=== PATIENT | male | born 1940 | race Caucasian/White ===

== ENCOUNTER 2018-01-12 05:52 | Inpatient (IN) | payer MEDICARE ==
[~2018-01-12 05:52] MED LIST: Buffered Lidocaine 0.9% SYRIN* 5 ML/SYR SYRINGE INTRADERM ONE
[2018-01-12] MEDS ORDERED: Sodium Citrate/Citric Acid* 15 ML UDC ONE (05:57)
[2018-01-12] MEDS ORDERED: ceFAZolin 2 GM PREMIX (*) 2 GM/50 ML BAG IVPB ONE (05:57)
[2018-01-12] MEDS ORDERED: Sodium Citrate/Citric Acid* 15 ML UDC PO ONE (06:00)
[2018-01-12] MEDS ORDERED: Thrombin 5,000 UNITS* 1 APPLIC KIT - topical use - TOPICAL ONE (07:01)
[2018-01-12] MEDS ORDERED: Lidocain 1% EPI 1:100,000 * 30 ML MDV ONE (07:01)
[2018-01-12] MEDS ORDERED: Bacitracin IV* 50,000 UNITS INJ ONE (07:01)
[2018-01-12] MEDS ORDERED: Lidocaine 2% PF * 5 ML VIAL ONE (07:12)
[2018-01-12] MEDS ORDERED: Propofol* 10 MG/ML 20 ML BTL IV PUSH ONE ×2 (07:12→09:04)
[2018-01-12] MEDS ORDERED: Rocuronium* 10 MG/ML VIAL ONE (07:13)
[2018-01-12 07:35] LABS: EGFR Non-African American 76.4 (>60)
[2018-01-12] MEDS ORDERED: fentaNYL* 50 MCG/ML 2 ML VIAL (100 MCG VIAL) ONE (07:38)
[2018-01-12] MEDS ORDERED: DiMENhydriNATE IV* 50 MG/ML VIAL IV PUSH PRN (08:35)
[2018-01-12] MEDS ORDERED: fentaNYL* 50 MCG/ML 2 ML VIAL (100 MCG VIAL) IV PRN (08:35)
[2018-01-12] MEDS ORDERED: Naloxone* 0.4 MG/ML 1 ML VIAL IV PRN (08:35)
[2018-01-12] MEDS ORDERED: HYDROcodone/ACETAMIN 5-325 MG* 1 TAB PO PRN (10:10)
[2018-01-12] MEDS ORDERED: Acetaminophen TAB* 325 MG PO PRN (10:10)
[2018-01-12] MEDS ORDERED: Magnesium Hydroxide LIQ* 30 ML UDC PO PRN (10:10)
--- NOTE | 2018-01-12 10:46 | RAD ---
HISTORY: LEFT LUMBAR DISCECTOMY L4-L5 COMPARISONS: MRI dated December 24, 2017 VIEWS: 2 , portable intraoperative views of the lumbar spine performed at 9:20 AM for localization during spinal surgery FINDINGS: Limited crosstable lateral portable intraoperative views of the spine for localization during spinal surgery demonstrates a metallic probe at the level of the inferior endplate of L4 counting from L5 as the last lumbar type vertebral body. IMPRESSION: LIMITED PORTABLE VIEW OF THE LUMBAR SPINE FOR LOCALIZATION DURING SPINAL SURGERY.
[2018-01-12 12:32] LABS: ABS Basophils 0 10^3/ul (0-0.2); ABS Eosinophils 0.1 10^3/ul (0-0.6); ABS Lymphocytes 0.8 10^3/ul (1.0-4.8); ABS Monocytes 0.8 10^3/ul (0-0.8); ABS Neutrophils 7.1 10^3/ul (1.5-7.7); ABS Nucleated RBC 0 10^3/ul; Eosinophil % 1.2 % (0-6); Hematocrit 41 % (42-52); Hemoglobin 14.1 g/dl (14.0-18.0); Lymphocyte % 9.3 % (25-47); Mean Corpuscular HGB Conc 35 g/dl (31-36); Mean Corpuscular Hemoglobin 32 pg (27-31); Mean Corpuscular Volume 93 fL (80-94); Mean Platelet Volume 8.4 um3 (7.4-10.4); Nucleated Red Blood Cells % 0; Platelet Count 147 10^3/ul (150-450); Red Blood Count 4.39 10^6/ul (4.00-5.40); Red Cell Distribution Width 13 % (10.5-15); White Blood Count 8.9 10^3/ul (3.5-10.8)
[2018-01-12 13:10] LABS: EGFR Non-African American 61.4 (>60)
[2018-01-12] MEDS ORDERED: KCL 20 MEQ/100 ML IVPREMIX* 20 MEQ/100 ML BAG IV ONE (13:27)
[2018-01-12] MEDS ORDERED: Potassium Chlor TAB* 20 MEQ TAB.ER PO ONE ×3 (13:27→18:00)
[2018-01-12] MEDS ORDERED: Magnesium Sulfate 2 GM IV* 2 GM/50 ML BAG IVPB ONE (13:30)
[2018-01-12] MEDS: Insulin LISPRO* 1 UNITS UNIT SUBCUT SCH ×3 (14:13→21:55)
--- NOTE | 2018-01-12 16:10 | CONS ---
CONSULTATION REPORT: DATE OF CONSULT: 01/12/18 PROVIDER: Cole Hopkins NP ATTENDING PHYSICIAN: Dr. Alcaraz (report dictated by Cole Hopkins NP). PRIMARY CARE PROVIDER: Dr. Zabala. REFERRING PHYSICIAN: Dr. Fenton. REASON FOR CONSULT: EKG changes. HISTORY OF PRESENT ILLNESS: Mr. Cheung is a 77-year-old male with a past medical history of distant tobacco abuse, smoking for approximately 20 years, quitting in ; obstructive sleep apnea, on CPAP; hypertension; non-insulin- dependent type 2 diabetes; hyperlipidemia; chronic back pain, who underwent a L4 -L5 lumbar diskectomy today with Dr. Fenton as an elective surgery. In the post-anesthesia care unit, the patient was noted to have some EKG changes and a 12-lead EKG was performed, which showed sinus bradycardia with rate of 53 with multiple premature ventricular and supraventricular complexes with an incomplete left bundle branch block. The patient was seen and evaluated in the PACU in which he denies any chest pain or shortness of breath. He reports he feels "just fine." Denies history of coronary artery disease in the past. He reports that he underwent an exercise nuclear stress test last year, which placed him at low risk and was "normal." He denies ever having chest pain or shortness of breath at rest or with exertion. He denies any nausea, diaphoresis. He currently denies any pain and reports he feels quite well. PAST MEDICAL HISTORY: 1. Former smoker, quitting in . 2. Mit-stddhyf-cbjbsxccx type 2 diabetes. 3. Hyperlipidemia. 4. Osteoarthritis. 5. Diabetic retinopathy. 6. Hypertension. 7. Obstructive sleep apnea, on CPAP. 8. Obesity. 9. Asthma. 10. Chronic back pain with lumbar stenosis at L4-L5 with history of lumbar decompression laminectomy of L4-L5 in 2016. 11. Depression. MEDICATIONS: Home medications: 1. Metformin 1000 mg p.o. q.p.m. 2. Celebrex 200 mg p.o. q.a.m. 3. Terazosin 5 mg p.o. at bedtime. 4. Pravastatin 20 mg p.o. q.p.m. 5. Microzide/hydrochlorothiazide 25 mg p.o. q.a.m. 6. Celexa 40 mg p.o. at bedtime. 7. Aspirin 81 mg p.o. q.p.m. 8. Amlodipine/benazepril 04/03 one tab p.o. q.a.m. Current medications: Reviewed and appreciated. ALLERGIES: No known allergies. FAMILY HISTORY: Family history of heart disease. SOCIAL HISTORY: The patient is a former smoker. Occasional alcohol use. Denies recreational drug use. The patient lives with his , Velia Cheung , who is his healthcare proxy, her number is [phone]. REVIEW OF SYSTEMS: A 14-point review of systems was performed, all the pertinent positives and negatives are mentioned in the history of present illness, otherwise are negative. PHYSICAL EXAM: Vital Signs: Temperature 97.2, heart rate 58, respirations 16, O2 sat 100% on 3 L nasal cannula, blood pressure 150/79. General Appearance: A 77-year-old male lying in the PACU stretcher, alert and oriented x3, in no acute distress. Good historian. HEENT: Head is normocephalic, atraumatic. Pupils equal and reactive to light. Oropharynx is clear. Moist mucous membranes. Neck is supple. Cardiac: S1 and S2, irregular rhythm, noted to have a heart rate in the 60s with noted PVCs and PACs on the monitor while auscultating. No lower extremity edema noted. No murmur noted. No JVD noted. Lungs: Clear to auscultation bilaterally with good aeration throughout. Abdomen: Obese, soft, nontender, nondistended. Bowel sounds throughout. Extremities: 2+ DP pulses bilaterally. Sensation to lower extremity is intact. Warm and well perfused. Neuro: Alert and oriented x3. No focal deficits noted. Psych: Appropriate. DIAGNOSTIC STUDIES/LAB DATA: Creatinine 0.96, glucose 188. Total creatine kinase 112. Please note these were preoperative labs prior to surgery. EKG: Sinus bradycardia with a rate of 53. Multiple premature complexes with an incomplete left bundle branch block. No ST elevation or depression noted. ASSESSMENT AND PLAN: 1. Mr. Cheung is a 77-year-old male, who underwent an elective lumbar diskectomy L4-L5 with Dr. Fenton today. He has a past medical history of non- insulin- dependent type 2 diabetes, hypertension, hyperlipidemia, obesity, obstructive sleep apnea, asthma, and distant history of tobacco abuse in which Hospital Medicine was asked to consult regarding an abnormal EKG. The patient is asymptomatic. The patient will have a workup for acute coronary syndrome but have low suspicion. We will send stat troponin and we will trend troponins q.3 hours along with EKGs. The patient has no history of coronary artery disease in the past and had a low risk/normal exercise stress test last year. He does have risk factors with this diabetes, hypertension, obesity, and distant history of tobacco abuse. Most likely the changes are secondary to anesthesia. Will check electrolytes. Plan to monitor the patient on telemetry. We will also send a BMP with magnesium and CBC. 2. Hypertension. The neurosurgery team has continued the patient on his home medications, which will be continued at this time. 3. Hyperlipidemia. Continue pravastatin. 4. Depression. Continue Celexa. 5. Obstructive sleep apnea. Continue the patient on nightly CPAP. 6. DVT prophylaxis. SCDs. 7. Code status. Full code. TIME SPENT: Approximately 45 minutes was spent on this consultation. This case is discussed with attending physician, Dr. Alcaraz, who agrees with the plan of care. COLE HOPKINS, JAISON [id number]/[facility] #: [id number] TIFFANIE
[2018-01-12] MEDS: Pravastatin (NF) 20 MG TAB PO SCH (18:32)
[2018-01-12] MEDS: Terazosin CAP* 5 MG PO SCH (22:15)
[2018-01-12] MEDS: Citalopram TAB* 40 MG PO SCH (22:15)
[2018-01-13 06:23] LABS: ABS Basophils 0.1 10^3/ul (0-0.2); ABS Eosinophils 0.2 10^3/ul (0-0.6); ABS Lymphocytes 1.2 10^3/ul (1.0-4.8); ABS Monocytes 1.1 10^3/ul (0-0.8); ABS Neutrophils 6.7 10^3/ul (1.5-7.7); ABS Nucleated RBC 0 10^3/ul; Eosinophil % 2.6 % (0-6); Hematocrit 39 % (42-52); Hemoglobin 13.5 g/dl (14.0-18.0); Mean Corpuscular HGB Conc 35 g/dl (31-36); Mean Corpuscular Hemoglobin 33 pg (27-31); Mean Corpuscular Volume 93 fL (80-94); Mean Platelet Volume 8.6 um3 (7.4-10.4); Nucleated Red Blood Cells % 0; Platelet Count 143 10^3/ul (150-450); Red Blood Count 4.15 10^6/ul (4.00-5.40); Red Cell Distribution Width 13 % (10.5-15); White Blood Count 9.3 10^3/ul (3.5-10.8)
--- NOTE | 2018-01-13 07:49 | PN ---
Progress Note - Progress Note Date of Service: 01/13/18 SOAP: Subjective: []POD # 1 Doing well Pre op leg pain relieved Some incisional pain Objective: []Moderate drain output Neuro intact Assessment: []Satis post op course Plan: []Continue to monitor drain output Change to inpatient status
[2018-01-13] MEDS: Insulin LISPRO* 1 UNITS UNIT SUBCUT SCH ×4 (08:05→20:51)
[2018-01-13] MEDS: Lisinopril TAB* 10 MG PO SCH (08:29)
[2018-01-13] MEDS: amLODIPine TAB* 5 MG PO SCH (08:29)
[2018-01-13] MEDS: Hydrochlorothiazide TAB* 25 MG PO SCH (08:29)
--- NOTE | 2018-01-13 08:39 | PN ---
Subjective Date of Service: 01/13/18 Interval History: Patient seen and evaluated at 1900. patient reports he feels well today and has been ambulated around the unit. Reports his pain is well controlled. Denies any fever/chills. No CP or SOB. Patient reports he has had a low HR all his life with normal resting in 40/50' s. Objective Active Medications: Acetaminophen (Tylenol Tab*) 650 mg PO Q4H PRN PRN Reason: PAIN Hydrocodone Bitart/Acetaminophen ([place] 5-325 Tab*) 2 tab PO Q4H PRN PRN Reason: marked pain Amlodipine Besylate (Norvasc Tab*) 10 mg PO DAILY [facility] Last Admin: 01/13/18 08:29 Dose: 10 mg Citalopram Hydrobromide (Celexa Tab*) 40 mg PO BEDTIME [facility] Last Admin: 01/12/18 22:15 Dose: 40 mg Hydrochlorothiazide (Hydrodiuril Tab*) 25 mg PO QAM [facility] Last Admin: 01/13/18 08:29 Dose: 25 mg Lactated Ringer's (Lactated Ringers 1000 Ml Bag*) 1,000 mls @ 75 mls/hr IV .per rate [facility] Insulin Human Lispro (Humalog*) 0 units SUBCUT [facility]; Protocol Last Admin: 01/13/18 08:05 Dose: Not Given Lisinopril (Prinivil Tab*) 20 mg PO DAILY [facility] Last Admin: 01/13/18 08:29 Dose: 20 mg Magnesium Hydroxide (Milk Of Magnesia Liq*) 30 ml PO DAILY PRN PRN Reason: CONSTIPATION Pravastatin Sodium (Pravachol (Nf)) 20 mg PO QPM [facility] Last Admin: 01/12/18 18:32 Dose: 20 mg Terazosin HCl (Hytrin Cap*) 5 mg PO BEDTIME [facility] Last Admin: 01/12/18 22:15 Dose: 5 mg Vital Signs - 8 hr 01/13/18 01/13/18 01/13/18 03:23 07:26 07:54 Temperature 97.9 F 97.0 F 97 F Pulse Rate 56 55 55 Respiratory 18 14 14 Rate Blood Pressure 139/62 129/53 129/53 (mmHg) O2 Sat by Pulse 97 98 98 Oximetry 01/13/18 08:00 Temperature Pulse Rate Respiratory 14 Rate Blood Pressure (mmHg) O2 Sat by Pulse 98 Oximetry Oxygen Devices in Use Now: None Appearance: 77 yo well developed male sitting up in a chair in NAD, A+O x3 Eyes: No Scleral Icterus, PERRLA Ears/Nose/Mouth/Throat: NL Teeth, Lips, Gums, Mucous Membranes Moist Respiratory: Symmetrical Chest Expansion and Respiratory Effort, Clear to Auscultation Cardiovascular: NL Sounds; No Murmurs; No JVD, RRR, No Edema Abdominal: NL Sounds; No Tenderness; No Distention Extremities: No Edema, No Clubbing, Cyanosis Skin: No Rash or Ulcers, No Nodules or Sclerosis Neurological: Alert and Oriented x 3, NL Sensation, NL Gait, NL Muscle Strength and Tone Lines/Tubes/Other Access: Clean, Dry and Intact Other Access - DANNA paul in lower back Nutrition: Taking PO's Result Diagrams: 01/13/18 06:07 01/13/18 06:07 Assess/Plan/Problems-Billing Assessment: 77 yo male with a PMH of distant tobacco abuse, SONALI on CPAP, HTN, non-insulin dependent DM, HLD, Chronic back pain who underwent an elective L4-L % diskectomy with Dr. Fenton on 01/12. Hospital Medicine was asked to consult regarding abnormal EKG findings post-operative - Patient Problems (1) Status post discectomy Comment: - POD #1 dispo per NS - Doing well - continue to have DANNA drain intact (2) Abnormal EKG Comment: - Patients normal HR 40/50s resting - asymptomatic. No c/o of CP. - EKG changes possibly d/y electrolyte abnormalities - repeat EKG stable - read as ST changes on this mornings EKG however similiar compared to prior. Reviewed with Dr. Rdz who agrees there are no significant changes to be concerned about. - 3 negative trops (3) Diabetes Comment: continue FSBG ACHS with lispro SS (4) HTN (hypertension) Comment: controlled continue lisinopril, norvasc, HCTZ (5) SONALI (obstructive sleep apnea) Comment: continue cpap (6) Asthma Comment: - controlled. asymptomatic (7) DVT prophylaxis (8) Full code status Status and Disposition: inpatient dispo per NS. Hospital Medicine will sign off for now. Please let us know if we can be of service in the future.
[2018-01-13] MEDS ORDERED: BENAZEPRIL PO SCH (09:00)
[2018-01-13] MEDS ORDERED: AMLODIPINE PO SCH (09:00)
[2018-01-13 09:18] LABS: EGFR Non-African American 84.4 (>60)
[2018-01-13] MEDS: Pravastatin (NF) 20 MG TAB PO SCH (17:52)
[2018-01-13] MEDS: Terazosin CAP* 5 MG PO SCH (20:26)
[2018-01-13] MEDS: Citalopram TAB* 40 MG PO SCH (20:26)
[2018-01-14 08:09] VITALS: BP 158/69
[2018-01-14] MEDS: Insulin LISPRO* 1 UNITS UNIT SUBCUT SCH (08:09)
[2018-01-14] MEDS: Hydrochlorothiazide TAB* 25 MG PO SCH (08:21)
[2018-01-14] MEDS: amLODIPine TAB* 5 MG PO SCH (08:21)
[2018-01-14] MEDS: Lisinopril TAB* 10 MG PO SCH (08:21)
--- NOTE | 2018-01-21 04:09 | OP ---
DATE OF OPERATION: 01/12/18 - ROOM #[id number] DATE OF : 44 PRIMARY SURGEON: Ruiz Fenton MD SLASHER MACHINE OPERATOR: JACK Lord ANESTHESIA: General. PRE-OP DIAGNOSIS: Herniated nucleus pulposus, L4-5, on the left. POST-OP DIAGNOSIS: Herniated nucleus pulposus, L4-5, on the left. OPERATIVE PROCEDURE: Redo lumbar diskectomy, L4-5, on the left with excision of herniated nucleus pulposus with microdissection. DESCRIPTION OF PROCEDURE: After satisfactory general anesthesia was obtained, the patient was placed on the operating table in the prone position with the chest supported on the Charbel frame and the back slightly flexed. The lumbar region was then clipped, prepped and draped in a sterile manner for lumbar laminectomy and a skin incision outlined along the previous incision from L4 to L5. The incision was extended superiorly to include L3. The patient previously had undergone lumbar decompressive laminectomy at L4-L5 with good relief of stenosis symptoms. He had recurrent leg pain and was seen to have superiorly extruded disk fragment. The paraspinal musculature was stripped away from the posterior elements of L3, L4, and L5, and a self-retaining retractor was placed to facilitate exposure. Since the disk had migrated superiorly, decision was made to enter the epidural space at L3- 4, which was done by removing the inferior aspect of the L3 and the superior aspect of the remaining posterior elements at L4 with combination of Midas Giles drill and Kerrison rongeurs. This was carried superiorly until the attachment of ligamentum flavum was taken down. Ligamentum flavum was then removed with the Kerrison as well. At this point of the procedure, the operating microscope was brought into the field and the remainder of the procedure was done under microscopic visualization. Utilizing microdissection, the remaining portion of the left-sided lamina at L4 was removed. Projecting into the axillary region of the L4 nerve root exposure were multiple fragments of disk herniation. They were essentially sitting behind the L4 vertebral body. These fragments were removed using microdissection. The disk space at L4-5 was palpated and was noted to be flat and was not entered. At the conclusion of the decompression, both the L4 and L5 nerve roots were free in their course. After assuring adequate hemostasis, the wound was thoroughly irrigated after which a piece of Gelfoam was placed over the laminectomy defect. A drain was placed in the epidural space and tunneled through the left side. The fascia was then reapproximated with 0 Vicryl sutures, the subcutaneous tissues closed with 3-0 Vicryl suture and the skin closed with skin clips. The estimated blood loss was 100 cc, and final sponge, padding, and needle counts were correct. The patient was taken to the recovery room, extubated and in stable condition. [id number]/[facility] #: [id number] [facility] HOSPITALNehemiah
--- NOTE | 2018-01-28 19:04 | DS ---
DISCHARGE SUMMARY: DATE OF ADMISSION: 01/12/18 DATE OF DISCHARGE: 01/14/18 DISCHARGE DIAGNOSES: 1. Herniated nucleus pulposus, L4-5 on the left. 2. Hypertension. 3. Obstructive sleep apnea. 4. Diabetes. SPECIAL PROCEDURES: Lumbar diskectomy, L4-5 on the left. HOSPITAL COURSE: This 77-year-old male was seen in the office with recurrent lumbar radiculopathy. MRI was obtained which showed a herniated disk at L4-5 in the left consistent with his symptoms. He failed to improve with conservative treatments and was therefore offered surgical intervention. On of admission, he was taken to surgery, under general anesthesia a lumbar diskectomy at L4-5 on the left operation was carried out. Postoperatively he was feeling well although intraoperatively a nd in the post anesthesia care unit he did have EKG changes. Hospitalist was consulted and the patie nt was monitored for electrolyte, troponin and repeat EKG. Initial EKG showed sinus bradycardia with PVCs, supraventricular complexes and incomplete left bundle branch block. Workup of this was negati ve and therefore, the changes were believed to be related to anesthesia and electrolyte abnormalities . On the first postoperative day, the wound drain continued to collect significant volume of fluid and was therefore left in place. On the second postoperative day, the wound drain was discontinued. At this time, the patient was ambulating independently. He was eating, drinking and voiding without dif ficulty. Pain was well-controlled with oral pain medication. On the second postoperative day, he wa s discharged home to the care of his family. Discharge instructions, wound care and activity level were discussed with the patient and provided. Bon GRANDE: He will be seen in office in approximately 10 days for a followup with staple removal. DISCHARGE MEDICATIONS: He will continue all home medications. JACK JUAN [id number]/[facility] #: [id number]
== END 2018-01-14 09:50 | disposition home or self-care (01) | DRG 520 ==
LOC: OR 05:52 → SSU 07:47 → OBSVTOIN 01-13 07:47
PROVIDERS: ADMIT Neurological Surgery; ATTEND Neurological Surgery
PROC: 0SB20ZZ Excision of Lumbar Vertebral Disc, Open Approach (ICD-10-PCS; principal; 2018-01-13)
DX: M51.26 Other intervertebral disc displacement, lumbar region (principal); M48.061 Spinal stenosis, lumbar region without neurogenic claudication; E78.5 Hyperlipidemia, unspecified; E11.319 Type 2 diabetes mellitus with unspecified diabetic retinopathy without macular edema; G47.33 Obstructive sleep apnea (adult) (pediatric); M16.0 Bilateral primary osteoarthritis of hip; E66.9 Obesity, unspecified; J45.909 Unspecified asthma, uncomplicated; F32.9 Major depressive disorder, single episode, unspecified; G89.29 Other chronic pain; R94.31 Abnormal electrocardiogram [ECG] [EKG]; I10 Essential (primary) hypertension; Z68.34 Body mass index [BMI] 34.0-34.9, adult; Z87.891 Personal history of nicotine dependence; Z72.89 Other problems related to lifestyle; Z86.010 Personal history of colon polyps; Z82.49 Family history of ischemic heart disease and other diseases of the circulatory system; Z83.6 Family history of other diseases of the respiratory system; I44.7 Left bundle-branch block, unspecified; I49.3 Ventricular premature depolarization
CPT/HCPCS: 36415; 72100; 80048; 82550; 82565; 83735; 84484; 85025; 88304; 93005; A9270-GY; G0378; J0690; J2704; J3010; J3475; J3480